=== PATIENT | female | born 1985 | race Caucasian/White ===

== ENCOUNTER 2017-04-10 13:10 | Outpatient (CLI) | payer OTHER ==
[2017-04-10] MEDS ORDERED: PNV11TAB PO (13:45)
[2017-04-10] MEDS ORDERED: ONDA-43 PO (13:47)
[2017-04-10] MEDS ORDERED: GLYB2.5T2 PO (13:47)
--- NOTE | 2017-04-10 14:37 | RADRPT ---
PROCEDURE: OB ultrasound for biophysical profile CLINICAL INDICATION: Gestational diabetes TECHNIQUE: Multiple sonographic images of the pelvis were obtained. Transabdominal views of the g ravid uterus are available for review. The images were reviewed on a PACS workstation. COMPARISON: None FINDINGS: breathing movement = 2/2 tone = 2/2 motion = 2/2 JAMES = 2/2 JAMES = 11.6 cm Single live intrauterine with cardiac activity of 166 bpm. position is cephal ic. The placenta is anterior. IMPRESSION: 1. Single live intrauterine gestation. 2. Biophysical profile = 8/8. 3. JAMES = 11.6 cm. RPTAT: HH .Tamera Middleton MD, MD Date Time Electronically viewed and signed by .Tamera Middleton MD, on 04/10/2017 14:37 .G/
--- NOTE | 2017-04-10 15:30 | CONS ---
Date/Time of Note Date/Time of Note DATE: 04/10/17 TIME: 15:23 Consultation Date/Type/Reason Admit Date/Time April 10, 2017 OB triage consult This patient is 31 years old 3 para 1 1 with estimated date of confinement of 05/05/2017 which makes her 36 weeks and 3 days today. She developed gestational diabetes mellitus and currently is taking antidiabetic medication glyburide . she came to the hospital for evaluation and monitoring regarding condition. On examination she is a well-developed well-nourished patient. Her general vital signs are basically normal with blood pressure of 110/59 pulse rate of, 77 respiration 18, and temperature 98. Her abdomen is soft, fairly rare contractions. heart tone is normal ,the tracing shows good variability with accelerations no decelerations. Etpm-mw-puhp variations are excellent. Reason for Consultation Laboratory Tests Test 04/10/17 14:56 Bedside Glucose 110mg/dL Constitutional: No chills, No diaphoresis, No disoriented, No febrile, No improved, No no complaints, No other, No poor po, No requiring IVF, No requiring O2 Eyes: No discharge, No no complaints, No other, No pain, No redness, No visual change ENT: No bleeding, No congestion, No discharge, No dysphagia, No no complaints, No other, No pain, No sore throat Respiratory: No cough, No no complaints, No other, No pain, No pleuritic pain, No shortness of breath, No sputum, No wheezing Cardiovascular: No chest pain, No edema, No lightheadedness, No no complaints, No orthopenea, No other, No palpitations, No paroxysmal nocturnal dyspnea Gastrointestinal: No blood, No constipation, No decreased appetite, No diarrhea , No flatus, No nausea, No no complaints, No other, No pain, No passing stool, No vomiting Genitourinary: No bleeding, No discharge, No dysuria, No flank pain, No hematuria, No no complaints, No other Musculoskeletal: other (Pelvic examination was not performed because she had no contractions basically), No back pain, No bone/joint pain, No neck pain, No no complaints, No restricted range of motion, No swelling Skin: No bruising, No erythema, No laceration, No no complaints, No other, No pruritis, No rash, No skin lesions Neurologic: No confusion, No dizziness, No focal-weakness, No headache, No no complaints, No other, No seizure, No syncope Endocrine: No dry skin, No no complaints, No other, No polydypsia, No polyuria , No temp intolerance Additional Comments .Her stress test was reactive. On ultrasound study the report result was a single live intrauterine gestation with heart activity 166 bpm. her biophysical profile was 8/8 with amniotic fluid index of 11.6 cm Disposition; patient was discharged home with instruction to do kick count and will be returned in clinic a few days for further monitoring . Exam/Review of Systems Results Results 24 hrs Laboratory Tests Test 04/10/17 14:56 Bedside Glucose 110 CLEOPATRA CAMPOS MD Apr 10, 2017 15:30
--- NOTE | 2017-04-10 15:51 | TRIAGE ---
OB Triage Datetime Report Generated by CPN: 04/10/2017 15:51 Datetime: 04/10/2017 15:09 Stage of : OB Triage Datetime: 04/10/2017 14:57 Stage of : OB Triage Datetime: 04/10/2017 14:37 Labor Evaluation Frequency: 2-5 Monitor Mode: External Duration (sec)2399: 40-60 Quality: Mild Pattern: Normal: <= 5 Contractions in 10 Minutes Resting Tone Boomer: Relaxed Contraction Comments: feels mildly Heart Rate FHR Baseline Rate: 145 Monitor Mode: External US Variability: Moderate 6-25 bpm Accelerations: 10X10 Decelerations: None Category: Category I Pain Assessment Pain Scale: 1 Pain Presence: Intermittent Pain Type: Cramping Pain Location: Abdomen Pain Goal: 3 Pain Relief Measures: Comfort Measures Datetime: 04/10/2017 13:39 Stage of : OB Triage Datetime: 04/10/2017 13:29 Stage of : OB Triage Assessment Type: Triage Maternal Assessment Level of Consciousness: Fully Conscious DTR's/Clonus: DTRs 2+; No Clonus Headache: Denies Blurred Vision: No Respiratory Effort: Unlabored; Regular Rhythm; Equal Expansion Breath Sounds, Left: Clear and Equal Breath Sounds, Right: Clear and Equal Nausea/Vomiting: Denies RUQ Epigastric Pain: Denies Facial Edema: None Temperature Route: Axillary Fall Risk Assessment History of Falling: (0) No Secondary Diagnosis: (0) No Ambulatory Aid: (0) Bedrest/Nurse Assist IV Therapy: (0) No Gait: (0) Normal/Bedrest/Immobile Mental Status: (0) Oriented to Own Ability Fall Score: 0 Fall Risk Score Definition: No Risk: No action required Labor Evaluation Frequency: X1 Monitor Mode: External Duration (sec)2399: 50 Quality: Mild Pattern: Normal: <= 5 Contractions in 10 Minutes Resting Tone Boomer: Relaxed Heart Rate FHR Baseline Rate: 135 Monitor Mode: External US Variability: Moderate 6-25 bpm Accelerations: 10X10 Decelerations: None Category: Category I Pain Assessment Pain Scale: 0 Pain Presence: None/Denies Pain Type: N/A Pain Goal: 3 Pain Relief Measures: Comfort Measures Datetime: 04/10/2017 13:28 EGA: 36.3 Datetime: 04/10/2017 13:27 Time of Arrival: 04/10/2017 12:55 Arrived By: Ambulatory Arrived From: Home Chief Complaint: REFERRED FROM CLINIC FOR NST/BPP DUE TO GDM. HX OF SMOKING MARIJUANA STARTED IN NOVEMBER AND STOPPED MAR 23. TOOK DUE TO NAUSEA/VOMITING Movement: Present Contractions: Occasional Rupture of Membranes: Denies Vaginal Discharge: Denies Recent Sexual Intercouse: Denies Abdominal Trauma: Not Applicable Patient Complaints: None Time Provider Notified: 04/10/2017 13:40 Provider Notified: KAREL Initial Plan: MONITOR, NST/BPP
== END 2017-04-10 15:30 | disposition home or self-care (01) ==
LOC: OBT 13:10 → L-D 13:10 → OBT 15:30
PROVIDERS: ATTEND Obstetrics & Gynecology
DX: O24.415 Gestational diabetes mellitus in pregnancy, controlled by oral hypoglycemic drugs (principal); Z3A.36 36 weeks gestation of pregnancy; Z79.84 Long term (current) use of oral hypoglycemic drugs
CPT/HCPCS: 76818; 82962; Z7500; G0463

== ENCOUNTER 2017-04-12 12:19 | Outpatient (CLI) | payer OTHER ==
[~2017-04-12] VITALS: Ht 167.6 cm; Wt 75.1 kg
[~2017-04-12 12:19] MED LIST: GLYB2.5T2 PO; ONDA-43 PO; PNV11TAB PO
[2017-04-12 12:33] VITALS: Ht 167.6 cm; Wt 75.1 kg
[2017-04-12 12:34] VITALS: BP 111/59; PULSE 83; RESP 18
--- NOTE | 2017-04-12 13:57 | RADRPT ---
PROCEDURE: US OB biophysical profile. CLINICAL INDICATION: decreased movements, contractions TECHNIQUE: Multiple sonographic images of the pelvis were obtained. The images were reviewed on a PACS workstation. COMPARISON: US PELVIS 04/10/2017 FINDINGS: There is a single viable intrauterine gestation. Cardiac activity is present with 142 beats per min [place]. There is a vertex presentation. The placenta is anterior. There is no evidence of placental abruption. There is a normal amount of amniotic fluid with an JAMES = 13.3 cm. Biophysical profile: movement 2/2 tone 2/2. breathing 2/2 JAMES 2/2 Total 02/06 RPTAT: AA . IMPRESSION: Normal biophysical profile. . .Stephen Garay MD, MD Date Time Electronically viewed and signed by .Stephen Garay MD, MD on 04/12/2017 13:56 .S/
[2017-04-12] MEDS ORDERED: LACTATED RINGER'S 500 ML IV ONE (16:00)
[2017-04-12] MEDS ORDERED: LACTATED RINGER'S 1,000 ML IV SCH ×2 (16:00→17:36)
[2017-04-12] MEDS ORDERED: TERBUTALINE 1 ML ONE (17:48)
[2017-04-12] MEDS ORDERED: OXYTOCIN 30 UNITS/LR 500 ML IV PRN (18:00)
[2017-04-12] MEDS ORDERED: LACTATED RINGER'S 1,000 ML IV PRN (18:00)
[2017-04-12] MEDS ORDERED: CARBOPROST 250 MCG INJ IM PRN (18:00)
[2017-04-12] MEDS ORDERED: METHYLERGONOVINE 0.2 MG INJ IM PRN (18:00)
[2017-04-12] MEDS ORDERED: MISOPROSTOL 200 MCG TAB PR PRN (18:00)
[2017-04-12] MEDS ORDERED: TERBUTALINE 1 MG/ML INJ SC ONE (18:00)
[2017-04-12] MEDS ORDERED: LIDOCAINE 1% (MPF) 30 ML INJ INJ PRN (18:00)
[2017-04-12 19:27] LABS: BASOPHILS % 0.2 % (0.0-2.0); EOSINOPHILS % 0.3 % (0.0-7.0); HEMATOCRIT 36.5 % (37.0-47.0); LYMPHOCYTES # 2.6 10^3/ul (0.8-2.9); LYMPHOCYTES % 30.2 % (15.0-51.0); MEAN CORPUSCULAR HEMOGLOBIN 30.9 pg (29.0-33.0); MEAN CORPUSCULAR HGB CONC 32.9 g/dl (32.0-37.0); MEAN CORPUSCULAR VOLUME 94.1 fl (82.0-101.0); MEAN PLATELET VOLUME 10.3 fl (7.4-10.4); MONOCYTE # 0.5 10^3/ul (0.3-0.9); MONOCYTES % 5.7 % (0.0-11.0); NEUTROPHIL # 5.5 10^3/ul (1.6-7.5); NEUTROPHILS % 63.4 % (39.0-77.0); PLATELET COUNT 200 10^3/UL (140-415); RED BLOOD COUNT 3.88 10^6/ul (4.20-5.40); RED CELL DISTRIBUTION WIDTH 13.9 % (11.5-14.5); WHITE BLOOD COUNT 8.7 10^3/ul (4.8-10.8)
[2017-04-12 19:31] LABS: INR 0.9; PARTIAL THROMBOPLASTIN TIME 27.2 Sec (25.0-35.0); PROTIME 12.1 Sec (12.2-14.2); PT RATIO 0.9
[2017-04-12 20:05] LABS: CANNABINOIDS Positive (NEGATIVE)
[2017-04-12 20:06] LABS: BARBITURATES Negative (NEGATIVE); BENZODIAZEPINES Negative (NEGATIVE); COCAINE Negative (NEGATIVE); OPIATES Negative (NEGATIVE)
--- NOTE | 2017-04-12 22:15 | PN ---
Triage Information Date/Time Apr 12, 2017 at 17:30 Reason for visit: NST and BPP for A2DM Weeks of Gestation 36w5d /Para A1(sab) Objective Vital Signs Date Time Temp Pulse Resp B/P Pulse Ox O2 Delivery O2 Flow Rate FiO2 04/12/17 12:34 98.4 83 18 111/59 98 Room Air Heart Rate: 130's Heart Rate Comments reactive Contractions: >10 Minutes Apart Exam VE 1/60/-2 re ex in 4hrs no change Results/Medications Result Diagram: 04/12/17 1830 Results 24 hrs Laboratory Tests Test 04/12/17 12:41 04/12/17 18:30 04/12/17 19:00 04/12/17 19:59 Bedside Glucose 92 76 White Blood Count 8.7 Red Blood Count 3.88 L Hemoglobin 12.0 Hematocrit 36.5 L Mean Corpuscular Volume 94.1 Mean Corpuscular Hemoglobin 30.9 Mean Corpuscular Hemoglobin Concent 32.9 Red Cell Distribution Width 13.9 Platelet Count 200 Mean Platelet Volume 10.3 Neutrophils % 63.4 Lymphocytes % 30.2 Monocytes % 5.7 Eosinophils % 0.3 Basophils % 0.2 Nucleated Red Blood Cells % 0.0 Neutrophils # 5.5 Lymphocytes # 2.6 Monocytes # 0.5 Eosinophils # 0.0 Basophils # 0.0 Nucleated Red Blood Cells # 0.0 Prothrombin Time 12.1 L Prothrombin Time Ratio 0.9 INR International Normalized Ratio 0.90 Activated Partial Thromboplast Time 27.2 Urine Opiates Screen Negative Urine Barbiturates Negative Urine Amphetamines Screen Negative Urine Benzodiazepines Screen Negative Urine Cocaine Screen Negative Urine Cannabinoids Positive Medications Current Medications Lactated Ringer's (Lr) 1,000 ml @ 125 mls/hr Q8H IV ; Start 04/12/17 at 17:36 Lidocaine 30 ml 30 ml ONCE PRN INJ EPISIOTOMY/TEARING; Start 04/12/17 at 18:00 Lactated Ringer's 1,000 ml @ 2,000 mls/hr Q30M PRN IV PRE-EPIDURAL BOLUS; Start 04/12/17 at 18:00 Oxytocin/Lactated Ringer's 500 ml @ 0 mls/hr ONCE PRN IV For Hemorrhage Management; Start 04/12/17 at 18:00 Methylergonovine Maleate (Methergine) 0.2 mg ONCE PRN IM VAGINAL BLEEDING; Start 04/12/17 at 18:00 Carboprost Tromethamine (Hemabate) 250 mcg ONCE PRN IM VAGINAL BLEEDING; Start 04/12/17 at 18:00 Misoprostol (Cytotec) 1,000 mcg ONCE PRN VA VAGINAL BLEEDING; Start 04/12/17 at 18:00 all these medication wasn't given / DR hood it was printed out by mistake Imaging Results [facility], [place] 02/06 JAMES 13.3 Disposition: Discharge Assessment/Plan IUP 36w5d with previous C/S P discharge home with routine labor instructions TIERA HOOD MD Apr 12, 2017 22:12
== END 2017-04-12 22:15 | disposition home or self-care (01) ==
LOC: OBT 12:19 → L-D 12:21 → OBT 17:30 → UNDOADMIN 17:30 → OBT 22:15
PROVIDERS: ATTEND Obstetrics & Gynecology
DX: O26.893 Other specified pregnancy related conditions, third trimester (principal); Z3A.36 36 weeks gestation of pregnancy; R10.9 Unspecified abdominal pain
CPT/HCPCS: 36415; 76818; 80307; 82962; 85025; 85610; 85730; 86592; 86900; 86901; 96360; 96361; 96372; J3105; J7120; Z7500; G0463

== ENCOUNTER 2017-04-17 17:57 | Outpatient (CLI) | payer OTHER ==
[~2017-04-17] VITALS: Ht 167.6 cm; Wt 75.2 kg
[2017-04-17 18:21] VITALS: BP 102/59; PULSE 81; RESP 18
--- NOTE | 2017-04-17 18:22 | RADRPT ---
PROCEDURE: US OB biophysical profile. CLINICAL INDICATION: decreased movements, gdm TECHNIQUE: Multiple sonographic images of the pelvis were obtained. The images were reviewed on a PACS workstation. COMPARISON: US PELVIS 04/12/2017 FINDINGS: There is a single viable intrauterine gestation. Cardiac activity is present with 115 beats per min [place]. There is a vertex presentation. The placenta is anterior. There is no evidence of placental abruption. There is a normal amount of amniotic fluid with an JAMES = 11.8 cm. Biophysical profile: movement 2/2 tone 2/2. breathing 2/2 JAMES 2/2 Total 02/06 RPTAT: AA . IMPRESSION: Normal biophysical profile. . .Stephen Garay MD, MD Date Time Electronically viewed and signed by .Stephen Garay MD, MD on 04/17/2017 18:22 .S/
--- NOTE | 2017-04-17 18:56 | PN ---
Triage Information Date/Time Reason for visit: NST BPP Weeks of Gestation 37+ /Para 3/1 Diabetes: gestational Diabetes management: oral agent Hypertention: none Objective Vital Signs Date Time Temp Pulse Resp B/P Pulse Ox O2 Delivery O2 Flow Rate FiO2 04/17/17 18:21 98.1 81 18 102/59 Room Air Heart Rate: 140's Contractions: None Disposition: Discharge Assessment/Plan BPP 02/06 NST reassuring MATHEW HENSON M.D. Apr 17, 2017 18:56
== END 2017-04-17 19:45 | disposition home or self-care (01) ==
LOC: OBT 17:57 → L-D 17:58 → OBT 19:45
PROVIDERS: ATTEND Obstetrics & Gynecology
DX: O24.415 Gestational diabetes mellitus in pregnancy, controlled by oral hypoglycemic drugs (principal); Z3A.37 37 weeks gestation of pregnancy
CPT/HCPCS: 76818; Z7500; G0463

== ENCOUNTER 2017-04-19 08:57 | Outpatient (CLI) | payer OTHER ==
[~2017-04-19] VITALS: Ht 167.6 cm; Wt 75.3 kg
[2017-04-19 09:13] VITALS: BP 100/61; PULSE 54; Ht 167.6 cm; Wt 75.3 kg
--- NOTE | 2017-04-19 10:19 | RADRPT ---
PROCEDURE: US OB biophysical profile. CLINICAL INDICATION: decreased movements, gestational diabetes TECHNIQUE: Multiple sonographic images of the pelvis were obtained. The images were reviewed on a PACS workstation. COMPARISON: US PELVIS 04/17/2017 FINDINGS: There is a single viable intrauterine gestation. Cardiac activity is present with 135 beats per min [place]. There is a vertex presentation. The placenta is anterior. There is no evidence of placental abruption. There is a normal amount of amniotic fluid with an JAMES = 13.6 cm. Biophysical profile: movement 2/2 tone 2/2. breathing 2/2 JAMES 2/2 Total 02/06 RPTAT: AA . IMPRESSION: Normal biophysical profile. . .Stephen Garay MD, MD Date Time Electronically viewed and signed by .Stephen Garay MD, MD on 04/19/2017 10:19 .S/
--- NOTE | 2017-04-19 10:19 | RADRPT ---
PROCEDURE: US OB. CLINICAL INDICATION: Size and dates , gestational diabetes TECHNIQUE: Multiple sonographic images of the pelvis and gravid uterus were obtained. The images were reviewed on a PACS workstation. COMPARISON: US PELVIS 04/19/2017 FINDINGS: There is a single viable intrauterine gestation. Cardiac activity is present with 146 beats per min [place]. There is a vertex presentation. The placenta is anterior. There is no evidence for an abruption or placenta previa. Measurements were made in order to determine age. The results are as follows: BPD =8.7 cm HC =31.5 cm AC =32.2 cm FL =7.1 cm Estimated gestational age of approximately 35 weeks and 5 days based on ultrasound measurements. Clinical age: 37 weeks and 5 days. The estimated date of delivery is 05/19/17, based on ultrasound measurements. The EFW = 2812 g, 18.2%, based on LMP age. RPTAT: AA IMPRESSION: Single viable intrauterine gestation of approximately 35 weeks and 5 days based on ultrasound measu rements. .Stephen Garay MD, MD Date Time Electronically viewed and signed by .Stephen Garay MD, on 04/19/2017 10:19 .S/
--- NOTE | 2017-04-19 11:57 | CONS ---
Date/Time of Note Date/Time of Note DATE: 04/19/17 TIME: 11:49 Consultation Date/Type/Reason Admit Date/Time April 19, 2017 OB triage follow-up visit This patient is a 31 years old 3 para 1 1 with estimated date of confinement of 05/05/2017 which makes her 37 weeks and 5 days. She developed gestational diabetes during this and placed on glyburide to control the blood glucose . She received Zofran to control her nausea vomiting today she is here mostly for repeat monitoring Her general physical exam is normal her blood pressure is 100/61, pulse rate 54 , respiration 18, temperature 97.7,. She has very rare contraction. heart rate tracing are reactive with good variability occasional acceleration no decelerations . Initial Consult Date 24 HR Interval Summary Constitutional: No chills, No diaphoresis, No disoriented, No febrile, No improved, No no complaints, No other, No poor po, No requiring IVF, No requiring O2 Detailed Summary Eyes: No discharge, No no complaints, No other, No pain, No redness, No visual change ENT: No bleeding, No congestion, No discharge, No dysphagia, No no complaints, No other, No pain, No sore throat Respiratory: No cough, No no complaints, No other, No pain, No pleuritic pain, No shortness of breath, No sputum, No wheezing Cardiovascular: No chest pain, No edema, No lightheadedness, No no complaints, No orthopenea, No other, No palpitations, No paroxysmal nocturnal dyspnea Gastrointestinal: No blood, No constipation, No decreased appetite, No diarrhea , No flatus, No nausea, No no complaints, No other, No pain, No passing stool, No vomiting Genitourinary: other (She has very rare contractions for the season pelvic examination was not performed today), No bleeding, No discharge, No dysuria, No flank pain, No hematuria, No no complaints Musculoskeletal: bone/joint pain, No back pain, No neck pain, No no complaints, No other, No restricted range of motion, No swelling Skin: No bruising, No erythema, No laceration, No no complaints, No other, No pruritis, No rash, No skin lesions Neurologic: No confusion, No dizziness, No focal-weakness, No headache, No no complaints, No other, No seizure, No syncope Endocrine: No dry skin, No no complaints, No other, No polydypsia, No polyuria , No temp intolerance Additional Comments .On ultrasound studies the result is single viable intrauterine gestation with heart beat 146 bpm vertex presentation placenta was anterior her estimated weight is 2812 g which makes her at 18.2 percentile based on the LMP The biophysical profile was 8/8 with JAMES of 2/2. She is scheduled to undergo a repeat section on April 28 Exam/Review of Systems Vital Signs Vitals Vital Signs Date Time Temp Pulse Resp B/P Pulse Ox O2 Delivery O2 Flow Rate FiO2 04/19/17 09:13 97.7 54 100/61 CLEOPATRA CAMPOS MD Apr 19, 2017 11:57
== END 2017-04-19 11:45 | disposition home or self-care (01) ==
LOC: L-D 08:57 → OBT 08:57
PROVIDERS: ATTEND Obstetrics & Gynecology
DX: O24.415 Gestational diabetes mellitus in pregnancy, controlled by oral hypoglycemic drugs (principal); O21.0 Mild hyperemesis gravidarum; O62.9 Abnormality of forces of labor, unspecified; Z3A.37 37 weeks gestation of pregnancy
CPT/HCPCS: 76815; 76818; 82962; Z7500; G0463